=== PATIENT | female | born 1970 | race Caucasian/White ===

== ENCOUNTER 2024-12-23 08:15 | Observation (INO) | payer OTHER ==
[2024-12-20 11:32] LABS: Absolute Basophils 0.1 K/uL (0-0.5); Absolute Eosinophils 0.1 K/uL (0-0.5); Absolute Lymphocytes (CBC) 2.1 K/uL (0.7-4.9); Absolute Monocytes 0.5 K/uL (0.1-1.3); Absolute Neutrophil 4.5 K/uL (1.8-8.0); Eosinophils % 1.5 % (0-4.4); Hematocrit 37.1 % (36.0-45.0); Hemoglobin 12.7 g/dL (12.0-15.0); Lymphocytes % 29.1 % (15.3-44.8); MCH 31.8 pg (27.0-35.0); MCHC 34.2 g/dL (32.0-36.0); MCV 93.1 fL (80-100); MPV 8.2 fL (7.6-11.3); Monocytes % 6.9 % (3.3-12.3); Neutrophils % 61.5 % (41.7-73.7); Platelets 327 thou/uL (152-406); RBC Red Blood Cell Count 3.99 M/uL (3.86-4.86); Red Cell Distribution Width 13.6 % (12.1-15.2)
[2024-12-20 11:36] LABS: Specific Gravity 1.027 (1.005-1.030); Urine Bacteria <20 /HPF (<20); Urine Bilirubin NEGATIVE (Negative); Urine Blood 1+ (Negative); Urine Clarity Turbid (Clear); Urine Color Yellow (Yellow); Urine Culture Reflex Order NOT NEEDED; Urine Glucose NEGATIVE (Negative); Urine Ketones NEGATIVE (Negative); Urine Microscopic Reflex YN ORDER UMIC; Urine Mucus Slight /HPF (None Seen); Urine Nitrite NEGATIVE (Negative); Urine Protein TRACE (Negative); Urine RBC <5 /HPF (None Seen); Urine Urobilinogen Normal (Normal); Urine WBC <5 /HPF (<5); Urine pH 6.5 (5.0-7.0)
[2024-12-20 11:39] LABS: PT Prothrombin Time 12.1 SECONDS (9.4-12.5); PTT, Activated Partial Thromb 30.2 SECONDS (24.3-36.9); Protime INR 1.15
[2024-12-20 11:42] LABS: Anion Gap 5.9 mEq/L (5.0-15.0); Potassium 3.9 mEq/L (3.5-5.1)
--- NOTE | 2024-12-21 12:13 | EKG ---
Test Date: 2024-12-20 Test Time: 12:09:32 Setter Off: MEASUREMENT RESULTS: Intervals: Rate: 77 VA: 146 QRSD: 92 QT: 386 QTc: 436 [place]: P: 33 VA: 146 QRS: 8 T: 20 INTERPRETIVE STATEMENTS: Normal sinus rhythm Cannot rule out Anterior infarct, age undetermined Abnormal ECG No previous ECG available for comparison Electronically Signed On 12-21-24 12:12:11 FACING BASTER by Everardo Flowers
[2024-12-23 09:41] LABS: Urine Specific Gravity/Preg 1.015 (1.005-1.030)
[2024-12-23] MEDS ORDERED: MIDAZOLAM HCL 2 MG/2 ML INJ ONE (10:13)
[2024-12-23] MEDS ORDERED: LIDOCAINE 2% W/EPI 1:200,000 MPF 20 ML VIAL IM ONE ×3 (10:15→12:04)
[2024-12-23] MEDS ORDERED: LIDOCAINE 1% MPF 5 ML VIAL ONE ×2 (10:16→11:00)
[2024-12-23] MEDS ORDERED: CEFAZOLIN SODIUM 1 GM/VIAL ONE (10:21)
[2024-12-23] MEDS ORDERED: NA CHLORIDE 0.9% 100 ML ONE (10:21)
[2024-12-23] MEDS ORDERED: LIDOCAINE HCL/EPINEPHRINE 20 ML MDV ONE (10:25)
[2024-12-23] MEDS: Ringers Lactate 1,000 ML IV ONE ×2 (10:33→12:12)
[2024-12-23] MEDS: CEFAZOLIN SODIUM 2 GM/VIAL ONE (10:51)
[2024-12-23] MEDS: VASOPRESSIN 20 UNIT/ML VIAL ONE (10:52)
[2024-12-23] MEDS ORDERED: propofoL 200 MG/20 ML VIAL IV ONE (11:00)
[2024-12-23] MEDS ORDERED: KETOROLAC 30 MG/ML INJ ONE (14:09)
[2024-12-23] MEDS ORDERED: ONDANSETRON 4 MG/2 ML VIAL ONE (14:09)
[2024-12-23] MEDS ORDERED: PROMETHAZINE INJ 25 MG/ML AMP IV PRN (14:23)
[2024-12-23] MEDS ORDERED: ACETAMINOPHEN 500 MG TAB PO PRN (14:23)
[2024-12-23] MEDS ORDERED: ONDANSETRON 4 MG/2 ML VIAL IV PRN (14:23)
--- OUTSIDE RECORDS SUMMARY | 2024-12-23 15:21 | XMS REPORT | Continuity of Care Document ---
Author Name Unknown Address [address] [facility] [address] th[address] Address [address] [facility] [address] [place] [address] Care Team Providers Care Gravity Prospecting Observer Helper Name Role Phone [email or web address]_Kadiyala_S Attending Clinician Unavaila ble [email or web address]_Kadiyala_S Admitting Clinician Unavaila ble Problems Condition Name Condition Details Condition Category Status Onset Date Resolution Date Last Treatment Date Treating Clinician Comments Source Obesity Obesity Problem Active 2023-11 00:00: 00 [facility] Constipati on by outlet obstructio n Constipati on by Outlet Obstructio n Problem Active 2023-11 0- 00:00: 00 [facility] Pruritus of vulva Pruritus of Vulva Problem Active 2023-11 00:00: 00 [facility] Endometria l hyperplasi a Endometria l Hyperplasi a Problem Active 2023-11 0- 00:00: 00 [facility] Cystocele Cystocele Problem Active 05-14 00:00: 00 [facility] Herniation of rectum into vagina Herniation of Rectum into Vagina Problem Active 05-14 00:00: 00 [facility] Female stress incontinen ce Female Stress Incontinen ce Problem Active 05-14 00:00: 00 [facility] Menopausal symptom Menopausal Symptom Problem Active 05-14 00:00: 00 [facility] 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 Hidradenit is Suppurativ a of Vulva Problem Active 05-14 00:00: 00 [facility] Fatigue Fatigue Problem Active 05-14 00:00: 00 [facility] Increased frequency of urination Increased Frequency of Urination Problem Active 05-14 00:00: 00 [facility] Reduced libido Reduced Libido Problem Active 05-14 00:00: 00 [facility] Simple obesity Simple Obesity Problem Active 08-04 00:00: 00 [facility] Body mass index 30+ - obesity Body Mass Index 30+ - Obesity Problem Active 08-04 00:00: 00 [facility] Gynecologi yue examinatio n abnormal Gynecologi yue Examinatio n Abnormal Problem Active 08-04 00:00: 00 [facility] Social History Smoking Status Start Date Stop Date Source Never Smoker [facility] Medications Ordered Medication Name Filled Medication Name Start Date Stop Date Current Medication? Ordering Clinician Indication Dosage Frequency Signature (SIG) Comments Components Source testosteron e 100 mg implant pellet Take 1 pellet by implantatio n route. testosteron e 100 mg implant pellet Take 1 pellet by implantatio n route. 2023-11 16:07: 39 No 1pellet (s) testostero ne 100 mg implant pellet Take 1 pellet by implantati on route. [facility] estradiol 10 mg implant pellet Take 1 pellet by implantatio n route. estradiol 10 mg implant pellet Take 1 pellet by implantatio n route. 2023-11 16:07: 22 No 1pellet (s) estradiol 10 mg implant pellet Take 1 pellet by implantati on route. [facility] COAST - testosteron e 62.5mg pellet testosteron e 62.5mg pellet 1 COAST - testosteron e 62.5mg pellet testosteron e 62.5mg pellet 1 No COAST - testostero ne 62.5mg pellet testostero ne 62.5mg pellet 1 [facility] Zepbound 15 mg/0.5 mL subcutaneou s pen injector ADMINISTER HALF OF A ML SUBCUTANEOU SLY WEEKLY Zepbound 15 mg/0.5 mL subcutaneou s pen injector ADMINISTER HALF OF A ML SUBCUTANEOU SLY WEEKLY No Zepbound 15 mg/0.5 mL subcutaneo us pen injector ADMINISTER HALF OF A ML SUBCUTANEO USLY WEEKLY [facility] atorvastati n 20 mg tablet TAKE 1 TABLET BY MOUTH EVERY DAY atorvastati n 20 mg tablet TAKE 1 TABLET BY MOUTH EVERY DAY No atorvastat in 20 mg tablet TAKE 1 TABLET BY MOUTH EVERY DAY [facility] escitalopra m 20 mg tablet TAKE 1 TABLET BY MOUTH EVERY DAY escitalopra m 20 mg tablet TAKE 1 TABLET BY MOUTH EVERY DAY No escitalopr am 20 mg tablet TAKE 1 TABLET BY MOUTH EVERY DAY [facility] magnesium magnesium No magnesium [facility] montelukast 10 mg tablet TAKE 1 TABLET BY MOUTH EVERY DAY montelukast 10 mg tablet TAKE 1 TABLET BY MOUTH EVERY DAY No montelukas t 10 mg tablet TAKE 1 TABLET BY MOUTH EVERY DAY [facility] Multi Vitamin 9 mg iron/15 mL oral liquid as directed Multi Vitamin 9 mg iron/15 mL oral liquid as directed No Multi Vitamin 9 mg iron/15 mL oral liquid as directed [facility] nebivolol 10 mg tablet TAKE 1 TABLET BY MOUTH EVERY DAY nebivolol 10 mg tablet TAKE 1 TABLET BY MOUTH EVERY DAY No nebivolol 10 mg tablet TAKE 1 TABLET BY MOUTH EVERY DAY [facility] zolpidem 10 mg tablet TAKE 1 TABLET BY MOUTH EVERY DAY NEEDED FOR 90 DAYS zolpidem 10 mg tablet TAKE 1 TABLET BY MOUTH EVERY DAY NEEDED FOR 90 DAYS No zolpidem 10 mg tablet TAKE 1 TABLET BY MOUTH EVERY DAY NEEDED FOR 90 DAYS [facility] phentermine 37.5 mg tablet TAKE 1 TABLET BY MOUTH EVERY DAY phentermine 37.5 mg tablet TAKE 1 TABLET BY MOUTH EVERY DAY No phentermin e 37.5 mg tablet TAKE 1 TABLET BY MOUTH EVERY DAY [facility] progesteron e micronized 200 mg capsule TAKE 1 CAPSULE BY MOUTH EVERY DAY FOR 90 DAYS progesteron e micronized 200 mg capsule TAKE 1 CAPSULE BY MOUTH EVERY DAY FOR 90 DAYS No 1capsul e(s) Q1D progestero ne micronized 200 mg capsule TAKE 1 CAPSULE BY MOUTH EVERY DAY FOR 90 DAYS [facility] estradiol 0.01% (0.1 mg/gram) vaginal cream INSERT 0.5 G 3 TIMES A WEEK BY VAGINAL ROUTE FOR 90 DAYS. estradiol 0.01% (0.1 mg/gram) vaginal cream INSERT 0.5 G 3 TIMES A WEEK BY VAGINAL ROUTE FOR 90 DAYS. No .5g Q56H estradiol 0.01% (0.1 mg/gram) vaginal cream INSERT 0.5 G 3 TIMES A WEEK BY VAGINAL ROUTE FOR 90 DAYS. [facility] triamcinolo ne acetonide 0.5 % topical ointment APPLY THIN COAT TO AFFECTED AREA TWICE A DAY triamcinolo ne acetonide 0.5 % topical ointment APPLY THIN COAT TO AFFECTED AREA TWICE A DAY No triamcinol one acetonide 0.5 % topical ointment APPLY THIN COAT TO AFFECTED AREA TWICE A DAY [facility] [place] Thyroid 30 mg tablet TAKE 1 TABLET BY MOUTH ONCE A DAY BEFORE MEALS [place] Thyroid 30 mg tablet TAKE 1 TABLET BY MOUTH ONCE A DAY BEFORE MEALS No 1 Q1D [place] Thyroid 30 mg tablet TAKE 1 TABLET BY MOUTH ONCE A DAY BEFORE MEALS [facility] - estradiol 6mg pellet estradiol 6mg pellet 1 6mg pellet [facility] - estradiol 6mg pellet estradiol 6mg pellet 1 6mg pellet No [facility] - estradiol 6mg pellet estradiol 6mg pellet [address] [facility] Vital Signs Vital Name Observation Time Observation Value Comments S ource BP Diastolic 2024-12-10 00:00:00 77 mm[Hg] [facility] Height 2024-12-10 00:00:00 64 [in_i] [facility] BP Systolic 2024-12-10 00:00:00 118 mm[Hg] [facility] Body Weight 2024-12-10 00:00:00 180.4 [lb_av] [facility] BMI (Body Mass Index) 2024-12-10 00:00:00 31 kg/m2 [facility] Height 2024-09-07 00:00:00 64 [in_i] [facility] BMI (Body Mass Index) 2024-09-07 00:00:00 37.2 kg/m2 [facility] BP Systolic 2024-09-07 00:00:00 124 mm[Hg] [facility] BP Diastolic 2024-09-07 00:00:00 84 mm[Hg] [facility] Body Weight 2024-09-07 00:00:00 216.6 [lb_av] [facility] BP Diastolic 2024-08-27 00:00:00 73 mm[Hg] [facility] BMI (Body Mass Index) 2024-08-27 00:00:00 37.2 kg/m2 [facility] BP Systolic 2024-08-27 00:00:00 111 mm[Hg] [facility] Height 2024-08-27 00:00:00 64 [in_i] [facility] Body Weight 2024-08-27 00:00:00 216.6 [lb_av] [facility] BMI (Body Mass Index) 2024-08-03 00:00:00 37.2 kg/m2 [facility] BP Diastolic 2024-08-03 00:00:00 80 mm[Hg] [facility] BP Systolic 2024-08-03 00:00:00 133 mm[Hg] [facility] Body Weight 2024-08-03 00:00:00 216.6 [lb_av] [facility] Height 2024-08-03 00:00:00 64 [in_i] [facility] BP Systolic 2024-06-30 00:00:00 133 mm[Hg] [facility] BP Diastolic 2024-06-30 00:00:00 80 mm[Hg] [facility] Height 2024-06-30 00:00:00 64 [in_i] [facility] BMI (Body Mass Index) 2024-06-30 00:00:00 37.2 kg/m2 [facility] Weight 2024-06-30 00:00:00 216.6 [lb_av] [facility] Height 2024-06-22 00:00:00 64 [in_i] [facility] BP Diastolic 2024-06-22 00:00:00 85 mm[Hg] [facility] BMI (Body Mass Index) 2024-06-22 00:00:00 37.2 kg/m2 [facility] BP Systolic 2024-06-22 00:00:00 135 mm[Hg] [facility] Body Weight 2024-06-22 00:00:00 216.6 [lb_av] [facility] Height 2024-05-07 00:00:00 64 [in_i] [facility] Body Weight 2024-05-07 00:00:00 216[facility]6 [facility] (Body Mass Index) 2024-05-07 00:00:00 37.2 kg/m2 [facility] Procedures Procedure Date / Time Performed Performing Clinician Source Cystourethroscopy 2024-06-22 00:00:00 [facility] US TRANSVAGINAL 2024-05-14 00:00:00 [facility] MAMMO, screening, digital, bilateral 2024-05-07 00:00:[address] [facility] Apicoectomy - Anterior 2024-04-09 00:00:[address] [facility] Abdominoplasty 2002-11-17 00:00:[address] [facility] Liposuction of Subcutaneous Tissue 2002-11-17 00:00:00 [facility] Breast Surgery - Augmentation 2002-11-17 00:00:[address] [facility] Medical Section 1988-11-17 00:00:00 [facility] Encounters Start Date/Time End Date/Time Encounter Type Admission Type Attending [facility] Care Department Encounter ID Source 2024-12-10 00:00:00 2024-12-10 00:00:00 TONY Anderson: [address], [place] [address] , Ph. [facility] GC_GCBZW_Dionne Tirado* [id number] [facility] 2024-11-02 00:00:00 2024-11-02 00:00:00 CAIO LeyvaP: [address], [place] [id number] , Ph. [facility] GC_GCBZW_Dionne Tirado* [id number] [facility] 2024-09-14 00:00:00 2024-09-14 00:00:00 JERSON Mejia: [address], [place] [address] , Ph. [facility] GC_GCBZW_Dionne Tirado* [id number] [facility] 2024-09-07 00:00:00 2024-09-07 00:00:00 Elizabeth Gutiérrez MD: [address], [place] [address] , Ph. [facility] GC_GCBZW_Dionne Tirado* [id number] [facility] 2024-08-27 00:00:00 2024-08-27 00:00:00 Elizabeth Gutiérrez MD: [address], [place] [phone] , Ph. [facility] - GC_GCBZW_[facility]* [id number] [facility] 2024-08-03 00:00:00 2024-08-03 00:00:00 CAIO MejiaP: [address], [place] [id number] , Ph. [facility] - GC_GCBZW_[facility]* [id number] [facility] 2024-07-20 00:00:00 2024-07-20 00:00:00 TONY Anderson: [address], [place] [id number] , Ph. [facility] - GC_GCBZW_[facility]* [id number] [facility] 2024-06-30 00:00:00 2024-06-30 00:00:00 Odette Irwin, DIRECTOR OF PULMONARY UNIT: [address], [place] [id number] , Ph. [facility] - GC_GCBZW_[facility]* [id number] [facility] 2024-06-22 00:00:00 2024-06-22 00:00:00 Elizabeth Gutiérrez MD: [address], [place] [phone] , Ph. [facility] - GC_GCBZW_[facility]* [id number] [facility] 2024-05-14 00:00:00 2024-05-14 00:00:00 Elizabeth Gutiérrez MD: [address], [place] [phone] , Ph. [facility] - GC_GCBZW_[place]* [id number] [facility] 2024-05-07 00:00:00 2024-05-07 00:00:00 TONY Anderson: [address], [place] [address] , Ph. [facility] - GC_GCBZW_Dionne Tirado* [id number] [facility] 2023-09-17 00:00:00 2023-09-17 00:00:00 Outpatient GC_GCBZW_Alex zhu_S [facility] [id number] [facility] Results Test Description Test Time Test Comments Results Result Co mments Source [facility] MedicalThyrotropin [Units/volume] in Serum or [id number] 00:00:00* Test Item Value Reference Range Interpretation Comme nts TSH (test code = TSH) 1.670 uIU/mL 0.500-4.530 [facility]ron[facility] (T3) Free [Mass/volume] in Serum or Plasma 2024-10-26 00:00:00* Test Item Value Reference Range Interpretation Comme nts free T3 (test code = free T3) 3.4 pg/mL 2.0-4.[address] [facility] MedicalFollitropin [Units/volume] in Serum or [id number] 00:00:00* Test Item Value Reference Range Interpretation Comme nts FSH (test code = FSH) 26.9 mIU/mL [facility] MedicalTriiodothyronine (T3) Free [Mass/volume] in Serum or Plasma 2024-09-08 00:00:00* Test Item Value Reference Range Interpretation Comme nts free T3 (test code = free T3) 3.3 pg/mL 2.0-4.[address] [facility] MedicalTestosterone free and total panel [Mass/volume] - Serum or Plasma 2024-09-08 00:00:00* Test Item Value Reference Range Interpretation Comme nts free testosterone (test code = free testosterone) 2.63 NG/dL 0.12-0.64 H sex hormone binding globulin (test code = sex hormone binding globulin) 68.80 nmol/L 10.00-57.00 H testosterone (test code = testosterone) 227.0 NG/dL 8.4-48.1 H [facility] Pathology biopsy [id number] 00:00:00Clinical InformationPathologistA SourceA Gross DescriptionA DiagnosisA CommentPrivia Medicaltest in question - [id number] 00:00:00* Test Item Value Reference Range Interpretation Comme nts container type: (test code = container type:) BX [facility] Medicalurinalysis, [id number] 09:32:00* Test Item Value Reference Range Interpretation Comme nts Leukocytes (test code = Leukocytes) Negative Nitrite (test code = Nitrite) negative Urobilinogen (test code = Urobilinogen) Normal Protein (test code = Protein) Negative pH (test code = pH) 5.0 Blood (test code = Blood) Negative Specific [place] (test code = Specific [place]) 1.010 Ketone (test code = Ketone) Negative Bilirubin (test code = Bilirubin) Negative Glucose (test code = Glucose) Negative Appearance (test code = Appearance) Clear Color (test code = Color) Dark Yellow [facility]inalysis, [id number] 08:21:00* Test Item Value Reference Range Interpretation Comme nts Leukocytes (test code = Leukocytes) Negative Nitrite (test code = Nitrite) negative Urobilinogen (test code = Urobilinogen) Normal Protein (test code = Protein) Trace pH (test code = pH) 6.0 Blood (test code = Blood) Negative Specific [place] (test code = Specific [place]) 1.020 Ketone (test code = Ketone) Negative Bilirubin (test code = Bilirubin) Negative Glucose (test code = Glucose) Negative Appearance (test code = Appearance) Clear Color (test code = Color) Pale Yellow [facility] MedicalFollitropin [Units/volume] in Serum or [id number] 00:00:00* Test Item Value Reference Range Interpretation Comme nts FSH (test code = FSH) 18.7 mIU/mL [facility] MedicalDehydroepiandrosterone sulfate (DHEA-S) [Mass/volume] in Serum or [id number] 00:00:00* Test Item Value Reference Range Interpretation Comme nts DHEA-S (test code = DHEA-S) 133.0 ug/dL 98.8-340.0 [facility] MedicalTestosterone free and total panel [Mass/volume] - Serum or Plasma 2024-05-10 00:00:00* Test Item Value Reference Range Interpretation Comme nts free testosterone (test code = free testosterone) 0.23 NG/dL 0.12-0.64 sex hormone binding globulin (test code = sex hormone binding globulin) 54.60 nmol/L 10.00-57.00 testosterone (test code = testosterone) 18.1 NG/dL 8.4-48.1 [facility] [Mass/volume] in Serum or [id number] 00:00:00 * Test Item Value Reference Range Interpretation Comme nts estradiol (test code = estradiol) 107.0 pg/mL 6.1-91.[address] [facility] Medicalpap, LB + [id number] 00:00:00* Test Item Value Reference Range Interpretation Comme nts LMP date: (test code = LMP date:) 02/16/2024 Pap, liquid-based (test code = Pap, liquid-based) NILM nilm source (liquid-based cytology): (test code = source (liquid-based cytology):) CERVICAL (WHICH INCLUDES ENDOCERVICAL) HPV high risk DNA (non 16/18) (test code = HPV high risk DNA (non 16/18)) NOT DETECTED not detected HPV high risk DNA type 16 (test code = HPV high risk DNA type 16) NOT DETECTED not detected HPV high risk DNA type 18 (test code = HPV high risk DNA type 18) NOT DETECTED not detected [facility]
[2024-12-23] MEDS: HYDROMORPHONE HCL 1 MG/ML INJ ONE (15:34)
[2024-12-23] MEDS: Ringers Lactate 1,000 ML IV SCH (16:50)
[2024-12-23 19:03] VITALS: BMI 30.9
[2024-12-23] MEDS: MORPHINE 2 MG/ML SYR IV PRN (21:16)
[2024-12-23] MEDS: ATORVASTATIN 20 MG TAB PO SCH (21:16)
[2024-12-23] MEDS: ZOLPIDEM TARTRATE 10 MG TABLET PO SCH (21:16)
[2024-12-24 00:32] VITALS: O2SAT 70
[2024-12-24] MEDS: IBUPROFEN 600 MG TAB PO PRN (01:51)
[2024-12-24] MEDS: HOME MED 1 EA UNK (Magnesium [Magnesium Gluconate] 200 MG Tablet) PO SCH (09:00)
[2024-12-24] MEDS: NEBIVOLOL HCL 5 MG TAB PO SCH (09:51)
[2024-12-24] MEDS: THYROID 30 MG TAB PO SCH (09:51)
[2024-12-24] MEDS: ESCITALOPRAM 20 MG TAB PO SCH (09:51)
[2024-12-24] MEDS: MONTELUKAST 10 MG TAB PO SCH (09:51)
[2024-12-24 12:49] VITALS: BP 108/68; TEMP 98
--- NOTE | 2025-01-16 23:43 | OP ---
Date of Procedure: 12/23/2024 Surgeon: Elizabeth Gutiérrez MD Piledriver Carpenter: Sole Rg Preoperative Diagnoses: Posterior wall prolapse stage 2 to 3, stress urinary incontinence, and urina ry frequency. Postoperative Diagnoses: Stage 2 posterior wall prolapse, posterior enterocele, uterine prolapse, pe rineocele, and stress urinary incontinence. Procedures Performed: 1. Posterior vaginal wall repair, enterocele repair with biologic graft augmentation. 2. Posterior bilateral sacrospinous ligament fixation and cervical colpopexy. 3. Perineocele repair. 4. Urethral bulking with Bulkamid and cystoscopy. Estimated Blood Loss: 100. Specimens: No specimens. Complications: No complications. Drains: Vaginal packing and Hudson catheter. Condition: Stable. Findings: POP-Q -3, -2, -6, 4.5, thin, 9, 0, 0, -4. On examination under anesthesia, significant pe rineocele was detected and it was very apparent that the large enterocele at the proximal portion of the posterior vaginal wall would make it very difficult for me to repair the proximal posterior wall without a biologic graft, and for this to be used it was difficult to find the uterosacral ligaments and therefore sacrospinous ligaments were used for fixation. Cystoscopy was negative. 1 mL of Bulkamid was used. Indications: The patient is a 54-year-old female with significant posterior vaginal bulge bothered b y bulge symptoms as well as defecatory dysfunction. Also had mixed urinary incontinence with urinary frequency and stress incontinence. She was tested in the office, where the transvaginal ultrasound did not show any pathology on the uterus or adnexal regions. On cystoscopy, normal anatomy without a ny significant pathology including tumor, stones. Urodynamic study showed stress incontinence with m oderate overactive bladder. She was counseled on her options, including pessary, observation with pelvic floor therapy, and surgi yue management alongside of this and she wanted to proceed with a surgical therapy. She was consente d and preoperatively evaluated and taken to the OR. At the preoperative area, she was re-evaluated, consented, and taken back to the OR. She was placed in a supine fashion on the operating table. General anesthesia was given. She was pl aced in dorsal lithotomy position using Faraz stirrups. Lower abdomen, medial thighs, vulva, vagina, and perineum were prepped and draped in a sterile fashion. Hudson was placed to drain the bladder, a nd [place] retractor was used for retracting the labia. Once positioning was optimal, POP-Q was do ne as above as well as the rectovaginal exam and gloves were changed. Once the decisions were made o n the axis repair, markings were made in the posterior vaginal wall and dilute vasopressin was inject ed on the perineum and the posterior vaginal wall all the way to the proximal portion. Posterior wall repair: A elder-shaped incision was made with a 15 blade on the posterior vaginal w all and another inverted triangle on the perineum. The perineal skin and vaginal epithelium were den uded keeping only the epithelium and sub-epithelium dissected from the underlying tissues, including the fascia. Then, the edges of the dissection were picked up with Allis clamps and epithelium was se parated from the underlying connective tissue and scar. Systematically posterior wall was dissected and the rectovaginal connective tissue was identified on the lateral margins of the dissection, and p roximally dissected to open the enterocele. Once the posterior wall and rectovaginal septum were sobeida ntified, mostly with the central defect and distally complete detachment from any perineal body struc tures, plan was to reconstruct the posterior vaginal wall and then after reconstruction of the perine ocele to reattach them both. Enterocele repair: The enterocele was dissected all the way to the apex in the posterior cul-de-sac and opened up on both sides. It was dissected away from the rectovaginal septum inferiorly as well, and then a 3-0 Monocryl suture was used in a pursestring fashion x2 to close the peritoneum and reduc e the enterocele. Once this was done and completed, the biologic graft was placed after the lateral dissection. Bilateral sacrospinous ligament fixation, cervical colpopexy: Laterally, the dissection was carried posteriorly towards the ischial spines and then the spine was then followed along the sacrospinous li gament sweeping posteriorly and medially to it, towards the coccyx the rectum away from th e sacrospinous ligament. Once this was cleaned up on the left side, then right side was dissected in a similar fashion. Once this was displayed, the Capio device was taken with Prolene suture and plac ed mid ligament without encircling it on the anterior surface in a stable fashion. After both sides were anchored, they were held on hemostats. Biologic graft anchoring: Three PDS 2-0 sutures were taken and placed on the posterior cervical tiss ue in the midline, then through and through on the posterior vaginal wall at least a centimeter later al to the central suture since it was difficult to crop picker uterosacral ligament remnants from here. Once the anchors on these 2 areas were placed in a firm fashion, these were held with hemostats. The n, the graft was fashioned into an 8 x 4 x 3 cm trapezoid. This was soaked according to package dire ctions and brought into the field. The central 3 sutures were marked, and sites were marked on the g raft and this was attached with 2-0 PDS sutures to the cervix and the lateral posterior vaginal wall. Once this was done, then sacrospinous sutures were anchored to the lateral portions of the proximal graft and sutures were then tied down at the ligament without a bridge. Once this was done, there w as an excellent reduction of the posterior enterocele as well as the apex and once this was done, the n the distal graft was retracted superiorly before anchoring it to the reconstructed posterior rectov aginal septum. Posterior wall fascial repair: 2-0 PDS was then taken and in the distal portion of the posterior vag inal wall, the 2-0 PDS was used from [id number] to bring the connective tissue that was mobilized t ogether in the center with a continuous running stitch. Perineocele repair: The perineocele was opened up. All the perineal body structures were opened up as well as the external sphincter capsule. This was closed from side to side using a 2-0 PDS in two interrupted sutures. Then, the perineal body was rec onstructed from side to side in all layers; layers of three 2-0 Vicryl sutures were placed. Once the perineal body was reconstructed and rectovaginal exam showed me a good perineal body, then interrupt ed 2-0 PDS sutures were used to connect the distal posterior wall to this perineal body. The distal portion of the graft was then attached after changing gloves and coming back to the field. It was attached to the proximal portion of the reconstructed posterior wall with a continuous runni ng 2-0 PDS suture from the lateral lower 2 cm across the middle and then over to the other lateral as pect. There was a good anchor at the proximal and distal portions, reconstructing the perineal body and reattachment as well as the apical suspension. Then, the vaginal epithelium was carefully trimme d only for good apposition and closed in a continuous running fashion with 2-0 Vicryl suture to the h ymen. Then rest of it was closed with a continuous running 3-0 Monocryl in a subcutaneous and subcut icular fashion, closed inside the vestibule. Rectovaginal exam was performed and was negative. Glov es were changed. A 30-degree lens, normal saline, and 17-Khmer sheath were taken, used. Cystoscopy was performed. T here were good jets of urine from both ureteric orifices. No evidence of any trauma to the bladder. The bladder was then completely drained. Urethral bulking: A 0-degree pediatric scope was taken and the Bulkamid sheath was attached, primed. The Bulkamid syringe was opened, primed, and attached to the hub and urethroscopy was performed unt il the tip of the scope was at the internal meatus. Then from here, the needle was advanced 2 cm int o the bladder and then pulled back to the mid urethra, so that I could identify the 2 cm dionicio and sli ghtly advancing the tip at 4, 2, 11, and 7 o'clock positions, I injected 1 mL evenly to bring togethe r the urethral epithelium and tying the urethra. Once this was done, the scope was then pulled out. A slow dribble was used during the Bulkamid procedure itself without overfilling the bladder; howeve r, a 12-Khmer Hudson was placed because of the posterior wall repair and potential voiding dysfunctio n. The bladder was drained and this was attached to the bag. Instrument, needle, and sponge counts x3 w ere correct at the end of the case. The patient tolerated this well. She was recovered from anesthe kaia and taken to PACU in a stable condition and then to the postop floor with her vaginal packing. LAZARO/JOSE Voice ID: [id number] Report ID: [id number]
== END 2024-12-24 12:20 | disposition home or self-care (01) ==
LOC: OR 08:15 → 2ND 14:56
PROVIDERS: ADMIT Obstetrics & Gynecology; ATTEND Obstetrics & Gynecology
PROC: 0JQC0ZZ Repair Pelvic Region Subcutaneous Tissue and Fascia, Open Approach (ICD-10-PCS; 2024-12-23)
PROC: 0USG0ZZ Reposition Vagina, Open Approach (ICD-10-PCS; 2024-12-23)
PROC: 0TV Urinary System, Restriction (ICD-10-PCS; 2024-12-23)
PROC: 0JUC0JZ Supplement of Pelvic Region Subcutaneous Tissue and Fascia with Synthetic Substitute, Open Approach (ICD-10-PCS; principal; 2024-12-23 09:30)
DX: N81.6 Rectocele (principal); R35.0 Frequency of micturition; N39.3 Stress incontinence (female) (male)
CPT/HCPCS: 57250; 57267; 57282; 51715; 93005; 85025; 81001; 80048; 36415; 86900; 86850; 81025; 85610; 86901; 85730; 94010; J2704 ×2; J2003 ×2; J2250; J2270; J1171; J2405; G0378 ×3; J7120 ×5; J0690; G0379; A4314